=== PATIENT | male | born 1950 | race Caucasian/White ===

== ENCOUNTER 2017-06-22 14:31 | Observation (INO) ==
--- NOTE | 2017-06-22 16:52 | Emergency Department Note ---
Disposition Clinical Impression: Chest pain of unknown etiology, Blurry vision, bilateral Disposition: Admitted As Inpatient Condition: Good Time of Disposition: 22:35 Chest Pain HPI - General Chief Complaint: ED General Medical Stated Complaint: "im vibrating" Time Seen by Provider: 06/22/17 16:21 Source: patient Limitations: no limitations Vital Signs Reviewed: Yes Nursing Notes Reviewed: Yes - History of Present Illness HPI Narrative: 67-year-old male complains of sensation of vibration in his left lower extremity that radiates. Down from his hip. Patient has a history of prostate issues currently under evaluation. Patient's received a bone scan and CT abdomen and pelvis times one week ago. Patient states his been having no pain with the vibrating sensation. Sensation has been constant since 1 night ago. Patient states he has an intermittent chest tightness last pressure that lasts a few seconds whenever the vibration sensation starts up. Patient currently has no pain. Severity scale (1-10): 0 - Related Data Home Medications Medication Instructions Recorded Confirmed Fexofenadine HCl 180 mg PO QAM 03/26/16 06/22/17 Fluticasone Propionate Nasal 50 mcg NS DAILY PRN 06/22/17 06/22/17 [Flonase] Oxybutynin Chloride [Ditropan Xl] 10 mg PO HS 06/22/17 06/22/17 Allergies Allergy/AdvReac Type Severity Reaction Status Date / Time Sulfa (Sulfonamide Allergy See Verified 03/26/16 11:22 Antibiotics) Comments All systems ED: reviewed and negative except as stated. Review of Systems: As Per HPI Constitutional: Denies: fever, chills, weakness Eyes: Denies: vision change ENT ED: Denies: congestion Cardiovascular: Denies: chest pain, palpitations Respiratory: Denies: cough, dyspnea Gastrointestinal: Denies: abdominal pain, nausea, vomiting, diarrhea Genitourinary: Reports: dysuria. Denies: urgency Chest Pain PMH - Past Medical History Medical history: Reports: arthritis, cancer, COPD, other Surgical history: Reports: appendectomy, cholecystectomy Psychiatric history: Reports: no psych history - Social History Smoking Status: Current every day smoker Alcohol use: Reports: none Drug use: Reports: none Physical Exam Vital Signs Temperature 97.7 F 06/22/17 14:33 Pulse Rate 94 06/22/17 14:33 Respiratory Rate 14 01/03/18 14:33 Blood Pressure 189/102 01/03/18 14:33 O2 Sat by Pulse Oximetry 98 06/22/17 14:33 Temperature 97.7 F 06/22/17 14:33 Pulse Rate 92 06/22/17 16:34 Respiratory Rate 16 06/22/17 16:34 Blood Pressure 164/109 06/22/17 16:34 O2 Sat by Pulse Oximetry 98 06/22/17 16:34 Oxygen Delivery Oxygen Delivery Room Air 67-year-old male who is alert and oriented 3 and in no acute distress. GCS of 15 Patient is afebrile with normal vital signs with exception of his blood pressure which is 189/102. Re-check of blood pressure shows 164/109. Patient is nontoxic appearing. - General Limitations: no limitations General appearance: alert - Head Head exam: atraumatic, normocephalic, normal inspection - Eye Eye exam: Present: normal appearance, PERRL, EOMI - ENT ENT exam: normal exam, normal oropharynx, mucous membranes moist - Neck Neck exam: Present: normal inspection - Chest Chest inspection: Present: normal inspection, symmetric chest wall rise - Respiratory Respiratory exam: Present: normal lung sounds bilaterally - Cardiovascular Cardiovascular exam: Present: regular rate, normal rhythm, normal heart sounds - Abdominal Exam Abdominal exam: Present: soft, Non-Tender. Absent: tenderness, distention, guarding, rebound, rigidity Course Vital Signs Temperature 97.7 F 06/22/17 14:33 Pulse Rate 94 06/22/17 14:33 Respiratory Rate 14 06/22/17 14:33 Blood Pressure 189/102 06/22/17 14:33 O2 Sat by Pulse Oximetry 98 06/22/17 14:33 Temperature 97.7 F 06/22/17 14:33 Pulse Rate 89 06/22/17 21:17 Respiratory Rate 18 06/22/17 21:17 Blood Pressure 146/86 06/22/17 21:17 O2 Sat by Pulse Oximetry 95 06/22/17 21:17 Oxygen Delivery Oxygen Delivery Room Air Chest Pain - MDM Narrative Medical decision making narrative: This documentation is done with the assistance of Dragon dictation. Despite efforts to ensure accuracy, there may be inaccuracies in mammalogist or spelling and typographical errors. I examined this patient and my medical decision-making was reviewed with the Resident Physician. I agree with the documented findings, disposition and treatment plan as described except to the extent set forth below. Patient was seen and evaluated by Dr. Rangel and myself, I agree with his evaluation and management plan, I supervised the care of the patient's stay. Patient's having a vibratory sense going down his left leg. Denies sciatica, no change in bowel or bladder habits. He does have good pulses in lower extremities. Pulses complaining of some intermittent chest pressure with marrow last couple days. Very vague in his history. Denies any back pain shortness of breath or arm pain. Going to give him an aspirin, check labs and reassess. He is in agreement with this plan. He states his chest pressures been going on for more than 24 hours. Chest X-Ray 06/22/17 16:48 IMPRESSION: No evidence for acute cardiopulmonary process. COPD. D/ / 06/22/2017 17:07:56 Eddie London MD / [email or web address] Interpreting Provider: Eddie London MD 1750 hrs.: His labs are back and look good. Troponins negative. I am uncertain what could be causing this vibratory sense that he feels. As this is nothing that we can feel. He has good pulses. Nonsurgical abdomen. No chest pain at this time. We talked about admission to rule out ACS since he had the chest pressure or home and follow up with primary care and determining which he would like to do. Patient has elected for admission for evaluation of his chest pain. He also states she has been having periods of blurry vision. CT scan of his head was taken and results shown below: Chest X-Ray 06/22/17 16:48 IMPRESSION: No evidence for acute cardiopulmonary process. COPD. D/ / 06/22/2017 17:07:56 Eddie London MD / [email or web address] Interpreting Provider: Eddie London MD Head CT 06/22/17 17:58 IMPRESSION: No acute intracranial abnormality. 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 Minimal chronic microvascular disease. Minimal left mastoid effusion. D/ / Sascha Sun MD / Sascha Sun MD Interpreting Provider: Sascha Sun MD Patient's lab workup is unremarkable. He has a negative troponin. Current plan is for admission and Pt has excepted the decision for admission Dr. Shoemaker the hospitalist has accepted patient for admission - Lab Data Lab results reviewed: Yes I reviewed the patient's lab results. Result diagrams: 06/22/17 17:12 06/22/17 17:12 Lab Results 06/22/17 06/22/17 06/22/17 Range/Units 17:12 17:12 17:12 WBC 8.0 (4.3-11.1) K/mcL RBC 5.32 (4.19-5.50) M/mcL Hgb 16.4 (12.9-16.9) g/dL Hct 49.3 (37.5-50.1) % MCV 92.7 (83.0-100.0) fL MCH 30.8 (28.0-33.3) pg MCHC 33.3 (31.6-35.5) g/dL RDW 13.4 (11.5-14.5) % Plt Count 227 (140-400) K/mcL MPV 9.6 (9.4-12.4) fL Immature Gran % 0.1 (0-4) % Seg Neutrophils % 56.1 % Lymphocytes % 33.0 % Monocytes % 7.9 % Eosinophils % 2.4 % Basophils % 0.5 % Neutrophils # 4.5 (1.6-8.9) K/mcL Lymphocytes # 2.6 (0.6-4.6) K/mcL Monocytes # 0.6 (0.0-1.3) K/mcL Eosinophils # 0.2 (0.0-0.6) K/mcL Basophils # 0.0 (0.0-0.2) K/mcL Sodium 138 (136-145) mEq/L Potassium 4.4 (3.5-5.1) mEq/L Chloride 107 (98-107) mEq/L Carbon Dioxide 27 (23-29) mEq/L BUN 26 H (8-23) mg/dL Creatinine 1.13 (0.70-1.30) mg/dL Est GFR ( Amer) > 60 (> 60) Est GFR (Non-Af Amer) > 60 (> 60) BUN/Creatinine Ratio 23 (6-26) Glucose 97 (70-105) mg/dL Calculated Osmolality 291 (280-300) Calcium 9.8 (8.6-10.3) mg/dL Troponin I < 0.03 (< 0.04) ng/mL Urine Color (Yellow) Urine Clarity (Clear) Urine pH (5.0-8.0) pH Units Ur Specific [place] (1.010-1.025) Urine Protein (Neg-Trace) mg/dL Urine Glucose (UA) (Normal) mg/dL Urine Ketones (Negative) mg/dL Urine Blood (Negative) Urine Nitrite (Negative) Urine Bilirubin (Negative) Urine Urobilinogen (Normal) mg/dL Ur Leukocyte Esterase (Negative) Ur Culture Indicated? (NO) 06/22/17 06/22/17 Range/Units 17:15 20:58 WBC (4.3-11.1) K/mcL RBC (4.19-5.50) M/mcL Hgb (12.9-16.9) g/dL Hct (37.5-50.1) % MCV (83.0-100.0) fL MCH (28.0-33.3) pg MCHC (31.6-35.5) g/dL RDW (11.5-14.5) % Plt Count (140-400) K/mcL MPV (9.4-12.4) fL Immature Gran % (0-4) % Seg Neutrophils % % Lymphocytes % % Monocytes % % Eosinophils % % Basophils % % Neutrophils # (1.6-8.9) K/mcL Lymphocytes # (0.6-4.6) K/mcL Monocytes # (0.0-1.3) K/mcL Eosinophils # (0.0-0.6) K/mcL Basophils # (0.0-0.2) K/mcL Sodium (136-145) mEq/L Potassium (3.5-5.1) mEq/L Chloride (98-107) mEq/L Carbon Dioxide (23-29) mEq/L BUN (8-23) mg/dL Creatinine (0.70-1.30) mg/dL Est GFR ( Amer) (> 60) Est GFR (Non-Af Amer) (> 60) BUN/Creatinine Ratio (6-26) Glucose (70-105) mg/dL Calculated Osmolality (280-300) Calcium (8.6-10.3) mg/dL Troponin I < 0.03 (< 0.04) ng/mL Urine Color Yellow (Yellow) Urine Clarity Clear (Clear) Urine pH 6.0 (5.0-8.0) pH Units Ur Specific [place] 1.024 (1.010-1.025) Urine Protein Negative (Neg-Trace) mg/dL Urine Glucose (UA) Normal (Normal) mg/dL Urine Ketones Negative (Negative) mg/dL Urine Blood Negative (Negative) Urine Nitrite Negative (Negative) Urine Bilirubin Negative (Negative) Urine Urobilinogen Normal (Normal) mg/dL Ur Leukocyte Esterase Negative (Negative) Ur Culture Indicated? NO (NO) - Radiology Data Radiology results reviewed: Yes I reviewed the patient's radiology results. Chest X-Ray 06/22/17 16:48 IMPRESSION: No evidence for acute cardiopulmonary process. COPD. D/ / 06/22/2017 17:07:56 Eddie London MD / earnold Interpreting Provider: Eddie London MD Head CT 06/22/17 17:58 IMPRESSION: No acute intracranial abnormality. 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 Minimal chronic microvascular disease. Minimal left mastoid effusion. D/ / Sascha Sun MD / Sascha uSn MD Interpreting Provider: Sascha Sun MD - EKG Data EKG attestation: Yes I reviewed and interpreted this EKG. EKG results narrative: EKG taken 06/22/2017 at 1442 hrs. shows sinus rhythm at a rate of 98 beats minute with no acute ST elevations or depressions in any leads. EKG reads incomcomplete right bundle-branch block. Previous EKG for comparison taken November 2014 shows right bundle. Previous EKGs looks worse than today's EKG Heart Score - Score History: Moderately Suspicious EKG: Non Specific repolarisation Disturbance Age: Greater than 65 Risk Factors: 1-2 risk factors Troponin: Less than normal limit HEART Score Total: 5
[2017-06-22] MEDS ORDERED: Aspirin 81 MG TAB.CHEW PO STA (17:17)
[2017-06-22 17:19] LABS: Basophils % 0.5 %; Eosinophils # 0.2 K/mcL (0.0-0.6); Eosinophils % 2.4 %; Hematocrit 49.3 % (37.5-50.1); Hemoglobin 16.4 g/dL (12.9-16.9); Immature Granulocytes % 0.1 % (0-4); Lymphocytes # 2.6 K/mcL (0.6-4.6); Mean Corpuscular HGB Conc 33.3 g/dL (31.6-35.5); Mean Corpuscular Hemoglobin 30.8 pg (28.0-33.3); Mean Corpuscular Volume 92.7 fL (83.0-100.0); Mean Platelet Volume 9.6 fL (9.4-12.4); Monocytes # 0.6 K/mcL (0.0-1.3); Monocytes % 7.9 %; Neutrophils # 4.5 K/mcL (1.6-8.9); Platelet Count 227 K/mcL (140-400); Red Blood Count 5.32 M/mcL (4.19-5.50); Red Cell Distribution Width 13.4 % (11.5-14.5); Segmented Neutrophils % 56.1 %
[2017-06-22 17:26] LABS: Bilirubin,Urine Negative (Negative); Blood,Urine Negative (Negative); Clarity,Urine Clear (Clear); Color,Urine Yellow (Yellow); Glucose,Urine (UA) Normal (Normal); Ketones,Urine Negative (Negative); Leukocyte Esterase,Urine Negative (Negative); Nitrite,Urine Negative (Negative); Protein,Urine Negative (Neg-Trace); Specific Gravity,Urine 1.024 (1.010-1.025); Urobilinogen,Urine Normal (Normal)
[2017-06-22 17:35] LABS: BUN/Creatinine Ratio 23 (6-26); Blood Urea Nitrogen 26 mg/dL (8-23); Calcium 9.8 mg/dL (8.6-10.3); Carbon Dioxide 27 mEq/L (23-29); Chloride 107 mEq/L (98-107); Glucose 97 mg/dL (70-105); Osmolality,Calculated 291 (280-300); Potassium 4.4 mEq/L (3.5-5.1); Sodium 138 mEq/L (136-145); eGFR For African Americans > 60 (> 60); eGFR For Non-African Americans > 60 (> 60)
[2017-06-22] MEDS ORDERED: 0.9 % Sodium Chloride 1,000 ML IVC ONE (17:58)
--- NOTE | 2017-06-22 20:28 | Internal Med History&Physical ---
<Deloris Patton - Last Filed: 06/22/17 21:00> Date of Encounter: 06/22/17 Time of Encounter: 20:18 Assessment and Plan (1) Chest pain of unknown etiology Current visit: Yes Status: Acute Patient is comfortable in and no acute distress. Patient is not having any chest pain at this time. EKGs showed no acute ischemic changes and no STEMI. It showed right bundle branch block that was also present on his previous EKG. CXR showed no acute processes. Troponins are negative. Head CT showed no acute intracranial abnormalities but it showed an old infarct in the left cerebellar hemisphere that is stable. Labs are unremarkable. Will admit patient to rule out ACS. Will trend series of troponins. (2) COPD (chronic obstructive pulmonary disease) Current visit: Yes Status: Acute Stable. Will monitor the patient. Qualifiers: Qualified Code(s): J44.9 - Chronic obstructive pulmonary disease, unspecified (3) Blurry vision, bilateral Current visit: Yes Status: Acute Head CT showed no acute intracranial abnormalities but it showed an old infarct in the left cerebellar hemisphere that is stable. Will continue to monitor the patient closely. Admit to rule out ACS. (4) Prostate cancer Current visit: Yes Status: Acute Will have patient follow up with PCP. Patient is complaining of "vibrating sensation" in left hip and radiate down left leg to left foot. Will order Left hip xray to further evaluate. Internal Medicine - H&P: HPI Chief complaint: Chest pain, blurry vision and vibrating sensation in left leg Admitted From: Emergency Dept History of present illness: Mr. Friedman is a 67 year old male with a past medical history of COPD and prostate cancer who presents to the ED today with multiple complaints. He is complaining of a "vibrating sensation down his left leg", chest pain, and bilateral blurry vision that started yesterday in the afternoon. The patient describes the chest pain as intermittent and "squeezing" with no radiation. He states that it comes on while at rest and lasts for 2-3 seconds and then goes away on its own. He does not notice anything that makes the chest pain comes on or goes away. He denies any SOB, diaphoresis, numbness or tingling, nausea and vomiting or any weaknesses associated with the chest pain. He denies any history of TN or CVA or HTN. He describes the blurry vision as intermittent and in both eyes. He does not notice anything that causes the blurry vision and what makes it better. He states that it comes and goes and lasts for less than a minute. He denies any history of vision changes and denies any history of diabetes. He describes the "vibrating sensation" in his left leg as constant and uncomfortable. He stated that it started yesterday around noon while he was sitting in his recliner watching television. It started in the side of his left his and radiates down his left buttock, behind his left leg, and down into his feet. He denies any numbness with this and denies any history of sciatica. He stated that he noticed that the "vibrating sensation" was worse when he was receiving IV fluids, but nothing makes it better. He currently has no chest pain and only complains of the sensation in his left lower extremity. He denies any headaches, abdominal pain, nausea and vomiting, blood in his stool, dysuria, hematuria, and any seizures. Past Med Surg Social Fam HX - Past Medical History Medical history: arthritis, cancer, COPD, other Psychiatric history: no psych history - Past Surgical History Surgical History: appendectomy, cholecystectomy - Social History Smoking Status: Current every day smoker Smokeless Tobacco Status: No Alcohol use: none Drug use: none Internal Medicine - H&P: Meds Fexofenadine HCl 180 mg PO QAM 03/26/16 [History] Fluticasone Propionate Nasal [Flonase] 50 mcg NS DAILY PRN 06/22/17 [History] Oxybutynin Chloride [Ditropan Xl] 10 mg PO HS 06/22/17 [History] 3 Allergy/AdvReac Type Severity Reaction Status Date / Time Sulfa (Sulfonamide Allergy See Verified 03/26/16 11:22 Antibiotics) Comments All Systems PM: A 10-system review of systems was performed and is negative for pertinent findings except as documented above in the HPI. - Constitutional Vitals: Temp Pulse Resp BP Pulse Ox 97.7 F 86 18 135/77 94 06/22/17 14:33 06/22/17 20:05 06/22/17 20:05 06/22/17 20:05 06/22/17 20:05 General appearance: Present: cooperative, A&O X 3, pleasant. Absent: no acute distress - Head Head exam: Present: atraumatic, normocephalic - Eye Eye exam: Present: PERRL, conjuntiva pink, sclera anicteric Pupils: Present: PERRL - Neck Neck exam general surgery: Present: supple, trachea midline. Absent: lymphadenopathy - Respiratory Respiratory exam: Present: CTAB. Absent: accessory muscle use, rales, rhonchi, wheezes - Cardiovascular Cardiovascular exam: Present: RRR, +S1, +S2. Absent: diastolic murmur, gallop, rubs, systolic murmur - GI/Abdominal GI/Abdominal exam: Present: normal bowel sounds, soft, no peritoneal signs. Absent: distended, tenderness - Extremities Exam Extremities exam: Present: warm, radial pulses palpable and symmetrical. Absent : calf tenderness, cyanotic, pedal edema - Neurological Exam Neurological exam: Present: alert, CN II-XII intact, oriented X3, no focal deficits, strengths equal and symetr throughout. Absent: motor sensory deficit , pronater drift, facial droop, speech deficit - Expanded Neurological Exam Neurological exam expanded: Absent: ataxia, tremor Patient oriented to: Present: person, place, time Neuro motor strength exam: LUE: 5, RUE: 5, LLE: 5, RLE: 5 - Skin Skin exam: Present: dry, intact Internal Med - H&P Results - Labs CBC & Chem 7: 06/22/17 17:12 06/22/17 17:12 Labs: Short CBC 06/22/17 Range/Units 17:12 WBC 8.0 (4.3-11.1) K/mcL Hgb 16.4 (12.9-16.9) g/dL Hct 49.3 (37.5-50.1) % Plt Count 227 (140-400) K/mcL Neutrophils # 4.5 (1.6-8.9) K/mcL BMP 06/22/17 17:12 Sodium 138 Potassium 4.4 Chloride 107 Carbon Dioxide 27 BUN 26 H Creatinine 1.13 Glucose 97 Calcium 9.8 Cardiac Enzymes 06/22/17 Range/Units 17:12 Troponin I < 0.03 (< 0.04) ng/mL Urine 06/22/17 Range/Units 17:15 Urine Color Yellow (Yellow) Urine Clarity Clear (Clear) Urine pH 6.0 (5.0-8.0) pH Units Ur Specific [place] 1.024 (1.010-1.025) Urine Protein Negative (Neg-Trace) mg/dL Urine Glucose (UA) Normal (Normal) mg/dL - Impressions ITS Impressions Chest X-Ray 06/22/17 16:48 IMPRESSION: No evidence for acute cardiopulmonary process. COPD. D/ / 06/22/2017 17:07:56 Eddie London MD / earnold Interpreting Provider: Eddie London MD Head CT 06/22/17 17:58 IMPRESSION: No acute intracranial abnormality. 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 Minimal chronic microvascular disease. Minimal left mastoid effusion. D/ / Sascha Sun MD / Sascha Sun MD Interpreting Provider: Sascha Sun MD <Nam Hinojosa - Last Filed: 06/23/17 07:05> Date of Encounter: 06/23/17 Internal Medicine - H&P: HPI History of present illness: Mr. Friedman is a 67 year old male All Systems PM: A 10-system review of systems was performed and is negative for pertinent findings except as documented above in the HPI. - Constitutional Vitals: Temp Pulse Resp BP Pulse Ox 97.6 F 85 18 149/75 96 06/23/17 06:56 06/23/17 06:56 06/23/17 06:56 06/23/17 06:56 06/23/17 06:56 Internal Med - H&P Results - Labs CBC & Chem 7: 06/23/17 03:20 06/23/17 03:20 Labs: Short CBC 06/23/17 Range/Units 03:20 WBC 6.4 (4.3-11.1) K/mcL Hgb 14.0 D (12.9-16.9) g/dL Hct 41.1 (37.5-50.1) % Plt Count 189 (140-400) K/mcL Neutrophils # 2.8 (1.6-8.9) K/mcL BMP 06/23/17 03:20 Sodium 140 Potassium 4.2 Chloride 113 H Carbon Dioxide 25 BUN 26 H Creatinine 1.05 Glucose 111 H Calcium 8.7 Cardiac Enzymes 06/23/17 Range/Units 03:20 Troponin I < 0.03 (< 0.04) ng/mL - Attending Attestation I have seen and examined patient independently. I have discussed with resident physician Dr Patton regarding the management plan. Agree with the documentation.
[2017-06-22] MEDS ORDERED: Naloxone 0.4 MG/ML INJ IVP PRN (20:36)
[2017-06-22] MEDS ORDERED: Acetaminophen 325 MG TABLET PO PRN (20:36)
[2017-06-22] MEDS ORDERED: Nitroglycerin 0.4 MG TAB.SUBL SL PRN (20:41)
[2017-06-22] MEDS ORDERED: 0.9 % Sodium Chloride 1,000 ML IVC SCH (20:45)
[2017-06-22] MEDS ORDERED: Fluticasone Propionate Nasal 50 MCG/SPRAY BOTTLE NS PRN (21:09)
[2017-06-23 04:50] LABS: Basophils % 0.6 %; Eosinophils # 0.3 K/mcL (0.0-0.6); Eosinophils % 3.9 %; Hematocrit 41.1 % (37.5-50.1); Immature Granulocytes % 0.3 % (0-4); Lymphocytes # 2.6 K/mcL (0.6-4.6); Lymphocytes % 40.8 %; Mean Corpuscular HGB Conc 34.1 g/dL (31.6-35.5); Mean Corpuscular Hemoglobin 31.2 pg (28.0-33.3); Mean Corpuscular Volume 91.5 fL (83.0-100.0); Mean Platelet Volume 10.4 fL (9.4-12.4); Monocytes # 0.7 K/mcL (0.0-1.3); Monocytes % 10.8 %; Neutrophils # 2.8 K/mcL (1.6-8.9); Platelet Count 189 K/mcL (140-400); Red Blood Count 4.49 M/mcL (4.19-5.50); Red Cell Distribution Width 13.3 % (11.5-14.5); Segmented Neutrophils % 43.6 %
[2017-06-23 05:15] LABS: BUN/Creatinine Ratio 25 (6-26); Blood Urea Nitrogen 26 mg/dL (8-23); Calcium 8.7 mg/dL (8.6-10.3); Carbon Dioxide 25 mEq/L (23-29); Chloride 113 mEq/L (98-107); Chol/HDL Ratio 3.4 (0-4.9); Cholesterol 132 mg/dL (< 200); Glucose 111 mg/dL (70-105); HDL Cholesterol 39 mg/dL (40-59); LDL Cholesterol,Calculated 74 mg/dL (0-99); Magnesium 1.8 mg/dL (1.6-2.6); Osmolality,Calculated 295 (280-300); Phosphorous 3.1 mg/dL (2.7-4.5); Potassium 4.2 mEq/L (3.5-5.1); Sodium 140 mEq/L (136-145); Triglycerides 93 mg/dL (< 150); eGFR For African Americans > 60 (> 60); eGFR For Non-African Americans > 60 (> 60)
[2017-06-23] MEDS ORDERED: Regadenoson 0.4 MG/5 ML SYRINGE IVP ONE (06:16)
[2017-06-23] MEDS ORDERED: Aspirin Enteric Coated 81 MG Tablet PO SCH (09:00)
[2017-06-23] MEDS ORDERED: Loratadine 10 MG TABLET PO SCH (09:00)
[2017-06-23 11:08] VITALS: BP 142/90
--- NOTE | 2017-06-23 13:31 | Discharge Summary ---
<Ranjeet Olivo - Last Filed: 06/23/17 13:25> Date of Encounter: 06/23/17 Time of Encounter: 09:35 - Discharge Diagnosis (1) Blurry vision, bilateral Priority: Secondary Status: Acute (2) COPD (chronic obstructive pulmonary disease) Priority: Secondary Status: Acute Qualifiers: Qualified Code(s): J44.9 - Chronic obstructive pulmonary disease, unspecified (3) Chest pain of unknown etiology Priority: Primary Status: Acute (4) Prostate cancer Priority: Secondary Status: Acute (5) Tingling sensation Priority: Secondary Status: Acute - Discharge Medications Prescriptions: Aspirin Enteric Coated [Aspirin EC] 81 mg PO DAILY #30 tablet. Atorvastatin [Lipitor] 40 mg PO HS #30 tablet Home Medications: Fexofenadine HCl 180 mg PO QAM 03/26/16 [History] Fluticasone Propionate Nasal [Flonase] 50 mcg NS DAILY PRN 06/22/17 [History] Oxybutynin Chloride [Ditropan Xl] 10 mg PO HS 06/22/17 [History] Aspirin Enteric Coated [Aspirin EC] 81 mg PO DAILY #30 tablet. 06/23/17 [Rx] Atorvastatin [Lipitor] 40 mg PO HS #30 tablet 06/23/17 [Rx] Allergies/Adverse Reactions: 3 Allergy/AdvReac Type Severity Reaction Status Date / Time Sulfa (Sulfonamide Allergy See Verified 03/26/16 11:22 Antibiotics) Comments Date of admission: 06/22/17 22:33 Primary care physician: Reshma Monahan Discharging clinician: Ranjeet Olivo Anticipated date of discharge: 06/23/17 - Patient Status Disposition: Home, Self-Care Condition: Good Functional capacity at discharge: independent ambulation Overall status at discharge: patient is back to baseline - Discharge Instructions Instructions: Chest Pain (DC) Follow Up With: Reshma Mcclelland MD [Primary Care Provider] - - Diet and Activity Activity: increase activity as tolerated Diet: advance to your usual diet Interval History: Patient evaluate his ASIS is chest pain is nearly gone he is not currently having is lying in bed. He says the tingling/hurting in his left leg is still there but has been unchanged and nothing new was happening with it. He says his blurry vision is having is completely gone he now has normal vision. Patient otherwise not complaining of shortness of breath, abdominal pain, nausea , vomiting, fever, chills, urinary complaints, change in bowel movements. Patient otherwise has no complains. There were no overnight events. Hospital course: Mr. Friedman is a 67 year old male with history of COPD and prostate cancer presented to the emergency department complaining of a vibrating sensation going down his left leg pain constant for 1 night prior to him coming to the emergency department. He also had intermittent chest chest tightness and pressure the last a few seconds and the vibration sensation starts. He currently was on numerous term and did not have any pain. He also noted that he had one episode of bilateral blurry vision and only lasted a few seconds and went away and this time he is watching TV. In the emergency department he was given aspirin and had an EKG done which showed a right bundle branch block which is old for him where he said he had an ablation done approximately 3-5 years ago as had no problems since then. She did have troponins which are normal other labs were normal as well. They did chest x-ray showed COPD. 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 He is admitted to the hospitalist service had 3 negative troponins. Due to him not having a cardiac history never undergone a stress test he did have a nuclear stress test done here which was shown to be normal with a 75% EF and no acute findings. He also had echo which also had no acute findings and normal EF. Due to this this is probably stable angina and he be followed outpatient. Because of this being a possible stroke and stroke history we will start him on a daily aspirin, 81 mg, as well as a statin, atorvastatin 40 mg daily. For his leg vibration I told him this could be a neurological/nerve problem and this can be followed in the outpatient setting most likely with physical therapy or possible future MRI. Patient says that he is fine with as is not currently having pain or change in his daily activities. The blurry vision and has not reoccurred since then this could be due to his stroke that is old. We did recommend him to keep following it and to follow-up with his primary care physician about possibly and an outpatient MRI. Patient understands this. Patient is discharged home on atorvastatin and aspirin and to continue his normal medications. Patient is stable at this time. N will follow up with primary care. Chest X-Ray 06/22/17 16:48 IMPRESSION: No evidence for acute cardiopulmonary process. COPD. D/ / 06/22/2017 17:07:56 Eddie London MD / earnold Interpreting Provider: Eddie London MD Head CT 06/22/17 17:58 IMPRESSION: No acute intracranial abnormality. 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 Minimal chronic microvascular disease. Minimal left mastoid effusion. D/ / Sascha Sun MD / Sascha Sun MD Interpreting Provider: Ssacha Sun MD Hip X-Ray 06/22/17 20:57 IMPRESSION: No acute abnormality detected. D/ / Armond Knapp MD / Armond Knapp MD Interpreting Provider: Armond Knapp MD - Time Spent with Patient Total time spent providing and/or coordinating discharge services: Greater than 30 minutes - Constitutional Vitals: Temp Pulse Resp BP Pulse Ox 97.8 F 90 18 142/90 97 06/23/17 11:05 06/23/17 11:05 06/23/17 11:05 06/23/17 11:05 06/23/17 11:05 General appearance: Present: cooperative, A&O X 3, pleasant. Absent: no acute distress - Head Head exam: Present: atraumatic, normocephalic - Eye Eye exam: Present: PERRL, conjuntiva pink, sclera anicteric Pupils: Present: PERRL - Neck Neck exam general surgery: Present: supple, trachea midline. Absent: lymphadenopathy - Respiratory Respiratory exam: Present: CTAB. Absent: accessory muscle use, rales, rhonchi, wheezes - Cardiovascular Cardiovascular exam: Present: RRR, +S1, +S2. Absent: diastolic murmur, gallop, rubs, systolic murmur - GI/Abdominal GI/Abdominal exam: Present: normal bowel sounds, soft, no peritoneal signs. Absent: distended, tenderness - Extremities Exam Extremities exam: Present: warm, radial pulses palpable and symmetrical. Absent : calf tenderness, cyanotic, pedal edema - Neurological Exam Neurological exam: Present: CN II-XII intact, oriented X3, no focal deficits. Absent: pronater drift, facial droop, speech deficit - Skin Skin exam: Present: dry, intact <Mikel Griggs G - Last Filed: 06/23/17 15:09> Date of Encounter: 06/23/17 Date of admission: 06/22/17 22:33 Primary care physician: Reshma [facility]erg[facility] course: Mr. Friedman is a 67 year old male - Time Spent with Patient Total time spent providing and/or coordinating discharge services: - Constitutional Vitals: Temp Pulse Resp BP Pulse Ox 97.8 F 90 18 142/90 97 06/23/17 11:05 06/23/17 11:05 06/23/17 11:05 06/23/17 11:05 06/23/17 11:05 - Attending Attestation I saw and evaluated the patient at bedside. I have reviewed the DC note obtained and documented by the resident and personally participated in the martinez components. I have discussed the case and management of the patient's care. I agree with the findings and plan of care.
--- NOTE | 2017-06-23 19:17 | Electrocardiograph Report ---
[address] [address] Test Date: 2017-06-22 Pat Name: Raymundo Friedman Department: 104 Room: [facility] Gender: M Hall Cleaner: : 1950 Requested By: Flash Rangel Order Number: [id number] Reading MD: Miguel Wilson MD Measurements Intervals [place] Rate: 98 P: 72 [place]: 135 QRS: 65 QRSD: 101 T: 73 QT: 350 QTc: 406 Interpretive Statements SINUS RHYTHM INCOMPLETE RIGHT BUNDLE BRANCH BLOCK Electronically Signed On 06-23-2017 19:16:00 EST by Miguel Wilson MD
== END 2017-06-23 14:43 | disposition home or self-care (01) ==
LOC: EMEROO 14:31 → 3NENU 14:31 → SUATTDRO 22:33 → 3NENU 22:46
PROVIDERS: ADMIT Family Medicine; ATTEND Internal Medicine

== ENCOUNTER 2017-08-22 06:08 | Observation (INO) ==
[2017-08-22] MEDS ORDERED: CeFAZolin Syr 2,000MG/20 ML 2,000 MG/20 ML SYRINGE IVPB ONE (06:28)
[2017-08-22] MEDS ORDERED: Albuterol 2.5 MG/3 ML NEBULIZER IH ONE (06:28)
[2017-08-22] MEDS ORDERED: Plasma-Lyte A (PH 7.4) 1,000 ML IVC SCH (06:30)
--- NOTE | 2017-08-22 06:49 | Anesthesia Evaluation PreOp ---
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 06/23/17 [Rx] Atorvastatin [Lipitor] 40 mg PO HS #30 tablet 06/23/17 [Rx] HYDROcodone/Acet 5/325 mg [Olema 5-325 mg] 1 tab PO Q4H PRN #10 tab 07/12/17 [Rx ] Phenazopyridine HCl [Pyridium] 200 mg PO TIDAC PRN #10 tab 07/12/17 [Rx] 3 Allergy/AdvReac Type Severity Reaction Status Date / Time Sulfa (Sulfonamide Allergy See Verified 08/08/17 08:34 Antibiotics) Comments Anesthesia Results - Labs Laboratory Tests 06/23/17 08/08/17 08/08/17 03:20 09:15 09:15 Hgb 16.1 Hct 49.0 Plt Count 234 Sodium 140 Potassium 4.2 BUN 26 H Creatinine 1.20 - Imaging Additional studies: echo: Impressions: LVEF 60-65%. Normal LV chamber size, wall thickness and function. Mild left ventricular diastolic dysfunction. Normal right ventricular structure and function. No evidence of pulmonary hypertension. No significant valvular dysfunction. stress test: Findings: Stress Note * Resting ECG demonstrated normal sinus rhythm, incomplete RBBB. * No baseline arrhythmias were noted. * Pharmacologic stress ECG is negative for ischemia at level of heart rate achieved. * No arrhythmias were noted during stress. * Patient had no chest pain during stress. * Normal hemodynamic responses to pharmacologic stress. Study Quality * Study quality is average. Gated EF % * Gated EF = 70%. Left Ventricle * The left ventricle is not dilated. LVEDV = 86 mL. NORMALS * Normal wall motion. * Normal segmental perfusion in rest. * Normal segmental perfusion in stress. Anesthesia Exam Selected Entries 08/22/17 06:34 Temperature 98.1 F Pulse Rate 100 Respiratory Rate 18 Blood Pressure 149/97 O2 Sat by Pulse Oximetry 98 Weight: 66kg NPO (# of Hours): 8 - HEENT Pupil (Motor): EOMI Mallampati: II Teeth: Edentulous Oral Opening: Greater than 3 - PLANETARIUM TECHNICIAN LOC: Oriented PLANETARIUM TECHNICIAN Motor: Normal RUE, Normal LUE, Normal RLE, Normal LLE, Normal Face PLANETARIUM TECHNICIAN Sensory: Normal: RUE, LUE, RLE, LLE, Face - Cardiac Rhythm: Regular Murmur: None - Pulmonary Breath Sounds: bilateral Clear Respiratory Effort: Symmetrical Anesthesia Assess/Plan ASA Score: 3 Modified Radha Scale for Level of Consciousness: Cooperative, oriented, and tranquil Anesthetic Plan: General Monitoring Plan: Standard Monitors, A-Line, CVC (possible) Recovery Plan: PACU (Agrees to GA and lines)
[2017-08-22] MEDS ORDERED: Lidocaine -MPF 4% 5 ML AMPUL ONE (06:58)
[2017-08-22] MEDS ORDERED: Lidocaine -MPF 2% 2 ML VIAL ONE (07:00)
[2017-08-22] MEDS ORDERED: *HR* FentaNYL (PF) 100 MCG/2 ML VIAL ONE ×2 (07:03→11:22)
[2017-08-22] MEDS ORDERED: *HR* Midazolam HCl 2 MG/2 ML VIAL ONE (07:03)
[2017-08-22] MEDS ORDERED: *HR* Propofol 200 MG/20 ML VIAL IVP ONE ×2 (07:04→11:44)
[2017-08-22] MEDS ORDERED: *HR* Rocuronium Bromide 50 MG/5 ML VIAL ONE ×2 (07:06→09:15)
[2017-08-22] MEDS ORDERED: *HR* Succinylcholine 200 MG/10 ML VIAL IVP ONE (07:06)
[2017-08-22] MEDS ORDERED: Heparin 1,000 UNITS/500 mL 500 ML ONE (07:26)
--- NOTE | 2017-08-22 07:31 | History & Physical Report ---
Date of Encounter: 08/22/17 Time of Encounter: 07:31 24 Hour HP Update - Instructions Instructions: If the History and Physical is less than 30 days old and was completed prior to A.M. admission and or procedure and has NOT been updated on calendar day of procedure please complete this update prior to performing procedure. - Update Patient reports changes in Medical Condition: No Changes in examination, assessment, or condition: No Changes in Medication: No Preop tests/diagnostics Reviewed: Yes Surgery Remains Indicated: Yes Consent for Planned Operative Procedure(s) Verified: Yes - Pre-Operative Checklist Preoperative Checklist Indicated: Yes Prophylactic Antibiotic Ordered: Yes Home Medications Include Beta Mouna: No Is VTE Prophylaxis Indicated?: Yes
[2017-08-22] MEDS ORDERED: Esmolol 100 MG/10 ML VIAL IVP ONE (07:55)
[2017-08-22] MEDS ORDERED: *HR* PHENYLEPHRINE 1,000 MCG/10 ML SYRINGE IVP ONE ×2 (08:01→08:33)
[2017-08-22] MEDS ORDERED: Albumin Human 5% 25.0 GM/500 ML VIAL ONE (08:51)
[2017-08-22] MEDS ORDERED: Acetaminophen IV 1,000 MG/100 ML INFUS..BTL ONE (08:58)
[2017-08-22] MEDS ORDERED: Ondansetron 4 MG/2 ML VIAL IVP ONE (09:19)
[2017-08-22] MEDS ORDERED: *HR* OxyCODONE Immed Rel 5 MG TABLET PO PRN (09:19)
--- NOTE | 2017-08-22 12:00 | Operative Note ---
Date of procedure: 08/22/17 Pre-op diagnosis: Prostate cancer Post-op diagnosis: same Procedure: Robotic-assisted radical prostatectomy with bilateral pelvic lymph node dissection Implants: 20-Swiss Garcia catheter. 19-Swiss Emilio drain. Complications: None Anesthesia: MICHAEL Surgeon: Nick Singh Was there an retail event assistant present: Yes Costume Seamstress: Bryce Mars Estimated blood loss (cc): 100 Specimen: Fat over top prostate. Right and left pelvic lymph nodes. Prostate. Condition: stable Disposition: PACU Procedure in Detail: INDICATIONS FOR PROCEDURE: Mr. Friedman is a 67 year-old male with history of elevated PSA. He was found on prostate needle biopsy to have prostate cancer. He is now presenting for robotic assisted prostatectomy with bilateral pelvic lymph node dissection. He was informed of the risks of the procedure including but not limited to bleeding, infection, injury to other structures, need for further procedures, lymphocele, urinary incontinence, urine leak, erectile dysfunction, bladder neck contracture, rectal injury, and the risk of anesthesia. He is willing to proceed. PROCEDURE: After informed consent was obtained, the patient was taken to the operating room, placed supine on the table. He was given IV antibiotics for antibiotic coverage. He had MADONNA's and SCD's placed on the lower extremities for DVT prophylaxis. Induction of general anesthesia was performed. The arms were tucked and he was placed in lithotomy position. He was secured to the OR table with padding. The patient previously had abdominal surgery. The left upper quadrant was void of any previous incisions. Therefore, 5 mm incision was made in the left upper quadrant. The Veress needle was introduced. The water drop test passed. Pneumoperitoneum was initiated with low pressures initially. The abomen was insufflated. I then placed a 5mm laparoscopic port using the camera and visual obturator. Once the trocar was in place, I surveyed the abdomen. There was no evidence of adhesions. I then made a 10 mm infraumbilical incision. The robotic port was placed here. Robotic ports were placed x 2 on the right side. We placed another robotic port to the left of the umbilicus. We also placed a 12mm port in the left lower quadrant. The air seal was initiated. Once all trocars were in place, the robot was docked to the patient and the monopolar scissors were placed on the right robotic arm. The bipolar [place] was in the left robotic arm and the Prograsp in the 4th arm. Within the right inguinal ring there was a mesh plug noted. I was able to carefully dissect this away from the field. We initially retracted the bowel with the 4th arm. The medial umbilical ligaments were cauterized and the bladder was taken down off the anterior abdominal wall using electrocautery. The bladder was dissected down to the endopelvic fascia. Care was taken along the right pelvic side given the previous hernia repair. The bladder was then grasped with a 4th arm and retracted cephalad. We then swept the periprostatic fat off the prostate as well as the pelvic sidewall. This was sent as a specimen. We then incised the endopelvic fascia on both sides and carried the incision up to the prostatic apex, sweeping the levator fibers off of the prostate. The puboprostatic ligaments were carefully incised. We then placed an 0 Vicryl suture through the dorsal venous complex and tied it down with a slip knot. Once the dorsal venous complex was ligated, we then turned our attention to the bladder neck which was incised with the monopolar cautery until the catheter was visualized at the bladder neck. The lateral bladder neck was carefully dissected and a large median lobe was noted. This was retracted into the field. The posterior bladder neck was then opened using the cautery until the space between the prostate and the bladder neck was visualized. Using the fourth arm was able to grasp the median lobe to retract the prostate anteriorly. Eventually, the vas deferens and seminal vesicals were encountered. The vas deferens were cauterized and divided. We pulled the seminal vesicles up into the field to help retract the prostate in cephalad direction. Denonvillier's fascia was dissected off the prostate posteriorly. Given the volume of cancer noted on his biopsy and his elevated PSA, we did not proceed with a nerve sparing approach. The pedicles were then ligated. I carefully divided the pedicles using multiple Hem-o-candice clips to clip the larger prostatic pedicle. Once the pedicles were controlled the remaining tissue was carefully dissected off the posterior aspect of the prostate. Attention was then turned to the right side. The pedicles were controlled using Hem-o-candice clips. T We then used the 4th arm to place the prostate on stretch in cephalad direction. We then transected the dorsal venous complex. The stitch remained in place. Once I got to the urethra this was incised with cold scissors. I cut across the urethra until the catheter was visualized. The catheter was removed and the posterior urethra was transected. The prostate was then freed. Hemostasis was adequate. There was no significant bleeding from the pedicles. Attention was then turned to the left pelvic sidewall. The external iliac vein was identified. Careful dissection then isolated the lymph node packet and the obturator nerve was identified. Weck clips were placed at the superior aspect of the lymph node packet. They were also placed at the inferior aspect of the lymph node packet. An identical approach was performed on the rightt side. The node packets were sent separately. On the right side the previous hernia repair made the dissection somewhat more difficult. The eugenia packet appeared smaller on the right side in order to be safe and not risk injury. The bladder neck was surveyed. It was slightly open. I then closed it laterally at the 3:00 and 9:00 positions with a 3-0 Monocryl in a figure-of- eight fashion. This led the bladder neck to be only slightly larger than the urethra. The urethral vesicle anastomosis was then performed with a 3-0 V-Candice suture in running fashion starting at 6 o'clock position. With two sutures tied together we then ran the right side up about penitentiary. The left side was then run around until the bladder was reanastamosed to the urethra. The final 20 Swiss catheter was placed into the bladder and balloon filled with 15 mL of sterile water. The bladder was irrigated. No leak was identified. A 19 Swiss Emilio drain was placed through the trocar down into the pelvis. The trocar was removed and drain sewn in place with a suture. The robot was then undocked from the patient. Using laparoscopic instruments I then moved the string from the Endo Catch bag over to the umbilical port with the assistance of the 8 mm robotic camera. After extending the incision slightly with the electrocautery the EndoCatch bag was then removed from the camera port. The abdominal fascia was then closed in an interrupted fashion with 0 Vicryl suture. All incisions were instilled with 0.25% Marcaine. The remaining trocars were removed under direct vision and all incisions were then closed with 4-0 Monocryl in subcuticular fashion. The patient was then awakened from general anesthesia and brought to the recovery room in good condition. All sponge, needle, and instrument counts were correct.
[2017-08-22] MEDS: MORPHINE SUL Oral CONC 10 MG/0.5 ML ORAL.SYG SL PRN ×2 (12:59→13:09)
[2017-08-22] MEDS ORDERED: *HR* OxyCODONE Immed Rel 5 MG TABLET PO ONE (13:25)
--- NOTE | 2017-08-22 14:33 | Anesthesia Evaluation Post Op ---
Date of Encounter: 08/22/17 Time of Encounter: 14:32 - Vital Signs Vital Signs: Last Vital Signs Temp 98.8 F 08/22/17 14:01 Pulse 104 08/22/17 14:01 Resp 22 08/22/17 14:01 BP 142/77 08/22/17 14:01 Pulse Ox 98 08/22/17 14:01 - Lungs Lungs: Clear Ascult./Percussion - Airway Airway: Non-obstructed - Cardiovascular Regular Rate - Mental Status Mental Status: Alert & Oriented, Answers Appropriately - Pain Pain Scale: 2 - Nausea Vomiting Nausea Vomiting: Not Present - Hydration Hydration: NPO - Discharge PostOp Status: Transfer Patient to floor
[2017-08-22] MEDS ORDERED: Fluticasone Propionate Nasal 50 MCG/SPRAY BOTTLE NS PRN (14:39)
[2017-08-22] MEDS ORDERED: Acetaminophen 325 MG TABLET PO PRN (14:39)
[2017-08-22] MEDS ORDERED: Naloxone 0.4 MG/ML INJ IVP PRN (14:39)
[2017-08-22] MEDS ORDERED: Ondansetron 4 MG/2 ML VIAL IVP PRN (14:39)
[2017-08-22] MEDS ORDERED: Promethazine 12.5 MG in 0.9 % Sodium Chloride 50 ML IVPB PRN (14:39)
[2017-08-22] MEDS: *HR* OxyCODONE Immed Rel 5 MG TABLET PO PRN (15:11)
[2017-08-22] MEDS ORDERED: CeFAZolin Premix DUPLEX 2,000 MG/50 ML BAG IVPB SCH (16:00)
[2017-08-22] MEDS: 0.9 % Sodium Chloride 1,000 ML IVC SCH (16:13)
[2017-08-22] MEDS: CeFAZolin Premix DUPLEX 2,000 MG/50 ML BAG IVPB SCH (17:14)
[2017-08-22] MEDS: *HR* Heparin 5,000 UNIT/ML VIAL SQ SCH (18:23)
[2017-08-22] MEDS: Ketorolac 15 MG/ML VIAL IVP PRN (18:28)
[2017-08-22] MEDS ORDERED: Famotidine 20 MG TABLET PO PRN (20:32)
[2017-08-23] MEDS ORDERED: CeFAZolin Premix DUPLEX 2,000 MG/50 ML BAG IVPB SCH
[2017-08-23] MEDS: CeFAZolin Premix DUPLEX 2,000 MG/50 ML BAG IVPB SCH ×2 (00:38→09:31)
[2017-08-23] MEDS: 0.9 % Sodium Chloride 1,000 ML IVC SCH ×2 (00:41→09:32)
[2017-08-23] MEDS: *HR* Heparin 5,000 UNIT/ML VIAL SQ SCH (05:09)
[2017-08-23 05:48] LABS: Basophils % 0.3 %; Eosinophils % 0.4 %; Hematocrit 35.5 % (37.5-50.1); Hemoglobin 11.8 g/dL (12.9-16.9); Immature Granulocytes % 0.3 % (0-4); Lymphocytes % 26.9 %; Mean Corpuscular HGB Conc 33.2 g/dL (31.6-35.5); Mean Corpuscular Hemoglobin 31.6 pg (28.0-33.3); Mean Corpuscular Volume 95.2 fL (83.0-100.0); Mean Platelet Volume 9.5 fL (9.4-12.4); Monocytes # 0.7 K/mcL (0.0-1.3); Monocytes % 9.5 %; Neutrophils # 4.5 K/mcL (1.6-8.9); Platelet Count 154 K/mcL (140-400); Red Blood Count 3.73 M/mcL (4.19-5.50); Red Cell Distribution Width 13.6 % (11.5-14.5); Segmented Neutrophils % 62.6 %
[2017-08-23 06:07] LABS: BUN/Creatinine Ratio 21 (6-26); Blood Urea Nitrogen 21 mg/dL (8-23); Calcium 8.6 mg/dL (8.6-10.3); Carbon Dioxide 25 mEq/L (23-29); Chloride 111 mEq/L (98-107); Glucose 105 mg/dL (70-105); Osmolality,Calculated 289 (280-300); Potassium 3.9 mEq/L (3.5-5.1); Sodium 138 mEq/L (136-145); eGFR For African Americans > 60 (> 60); eGFR For Non-African Americans > 60 (> 60)
--- NOTE | 2017-08-23 07:19 | Urology Progress Note ---
Date of Encounter: 08/23/17 Time of Encounter: 07:16 - Assessment and Plan (1) Prostate cancer Current Visit: No Status: Acute Assessment and plan: 67-year-old man status post RARP doing well. Advance diet as tolerated. Continue ambulation We will give small bolus of IV fluid for slightly reduced urine output overnight. If he is tolerating general diet later today, we can anticipate discharge home. Progress Note Narrative: Postop day #1 status post robotic-assisted radical prostatectomy with bilateral pelvic lymph node dissection. His pain is well-controlled. He is tolerating clears. He reports passing gas. He has gotten out of bed. Objective Initial Vital Signs Temp Pulse Resp BP Pulse Ox 98.1 F 100 18 149/97 98 08/22/17 06:25 08/22/17 06:25 08/22/17 06:25 08/22/17 06:25 08/22/17 06:25 - General physical appearance Present: well developed, well nourished, no distress - Respiratory Present: normal respiratory effort - Abdomen Present: soft (Appropriately tender. Incisions are clean, dry, and intact. LEWIS in place with serosanguineous fluid.) - Genitourinary Present: other (Garcia catheter in place with clear urine.) - Labs 08/23/17 05:23 08/23/17 05:23 Diabetes panel 08/23/17 Range/Units 05:23 Sodium 138 (136-145) mEq/L Potassium 3.9 (3.5-5.1) mEq/L Chloride 111 H (98-107) mEq/L Carbon Dioxide 25 (23-29) mEq/L BUN 21 (8-23) mg/dL Creatinine 0.98 (0.70-1.30) mg/dL Glucose 105 (70-105) mg/dL Calcium 8.6 (8.6-10.3) mg/dL Calcium panel 08/23/17 Range/Units 05:23 Calcium 8.6 (8.6-10.3) mg/dL Pituitary panel 08/23/17 Range/Units 05:23 Sodium 138 (136-145) mEq/L Potassium 3.9 (3.5-5.1) mEq/L Chloride 111 H (98-107) mEq/L Carbon Dioxide 25 (23-29) mEq/L BUN 21 (8-23) mg/dL Creatinine 0.98 (0.70-1.30) mg/dL Glucose 105 (70-105) mg/dL Calcium 8.6 (8.6-10.3) mg/dL Adrenal panel 08/23/17 Range/Units 05:23 Sodium 138 (136-145) mEq/L Potassium 3.9 (3.5-5.1) mEq/L Chloride 111 H (98-107) mEq/L Carbon Dioxide 25 (23-29) mEq/L BUN 21 (8-23) mg/dL Creatinine 0.98 (0.70-1.30) mg/dL Glucose 105 (70-105) mg/dL Calcium 8.6 (8.6-10.3) mg/dL - VTE Documentation of Mechanical Device: Intermittent pneumatic compression device Consult Discharge Plan - Plan Referrals: Reshma Mcclelland MD [Primary Care Provider] -
[2017-08-23] MEDS ORDERED: 0.9 % Sodium Chloride 500 ML IVC ONE (07:20)
[2017-08-23] MEDS: *HR* OxyCODONE Immed Rel 5 MG TABLET PO PRN ×2 (09:31→17:02)
[2017-08-23] MEDS: Ketorolac 15 MG/ML VIAL IVP PRN (12:16)
[2017-08-23 15:40] VITALS: BP 156/79
--- NOTE | 2017-08-23 16:00 | Discharge Summary ---
Orders not resulted at time of discharge: Pending orders 08/22/17 10:26 Surgical Pathology [PTH] Routine Date of Encounter: 08/23/17 Time of Encounter: 16:02 - Discharge Diagnosis (1) Prostate cancer Priority: Primary Status: Acute - Hospital Course Hospital course: Mr. Friedman is a 67 year old male who presented on 08/22/2017 with prostate cancer. On that day he underwent a robotic-assisted radical prostatectomy with bilateral pelvic lymph node dissection. He did well after surgery. His diet was slowly advanced after surgery. On postoperative day #1 his drain was removed. He was discharged home later that day. - Time Spent with Patient Total time spent providing and/or coordinating discharge services: Labs on day of discharge: Labs from last 24 hours 08/23/17 08/23/17 05:23 05:23 WBC 7.3 RBC 3.73 L Hgb 11.8 L Hct 35.5 L MCV 95.2 MCH 31.6 MCHC 33.2 RDW 13.6 Plt Count 154 MPV 9.5 Immature Gran % 0.3 Seg Neutrophils % 62.6 Lymphocytes % 26.9 Monocytes % 9.5 Eosinophils % 0.4 Basophils % 0.3 Neutrophils # 4.5 Lymphocytes # 2.0 Monocytes # 0.7 Eosinophils # 0.0 Basophils # 0.0 Sodium 138 Potassium 3.9 Chloride 111 H Carbon Dioxide 25 BUN 21 Creatinine 0.98 Est GFR ( Amer) > 60 Est GFR (Non-Af Amer) > 60 BUN/Creatinine Ratio 21 Glucose 105 Calculated Osmolality 289 Calcium 8.6 - Discharge Medications Prescriptions: Docusate [Colace] 100 mg PO BID #60 capsule Oxycodone HCl/Acetaminophen [Percocet 5-325 mg Tablet] 1 each PO Q4H PRN 7 Days #25 tablet PRN Reason: Pain Home Medications: Fexofenadine HCl 180 mg PO QAM PRN 03/26/16 [History] Fluticasone Propionate Nasal [Flonase] 50 mcg NS DAILY PRN 06/22/17 [History] Oxybutynin Chloride [Ditropan Xl] 10 mg PO HS 06/22/17 [History] Aspirin Enteric Coated [Aspirin EC] 81 mg PO DAILY #30 tablet. 06/23/17 [Rx] Atorvastatin [Lipitor] 40 mg PO HS #30 tablet 06/23/17 [Rx] Docusate [Colace] 100 mg PO BID #60 capsule 08/23/17 [Rx] Oxycodone HCl/Acetaminophen [Percocet 5-325 mg Tablet] 1 each PO Q4H PRN 7 Days #25 tablet 08/23/17 [Rx] Allergies/Adverse Reactions: 3 Allergy/AdvReac Type Severity Reaction Status Date / Time Sulfa (Sulfonamide Allergy See Verified 08/22/17 07:00 Antibiotics) Comments Date of admission: 08/22/17 14:27 Primary care physician: Reshma Vergara[facility] Discharging clinician: Nick Singh Anticipated date of discharge: 08/23/17 Exam Initial Vital Signs Temp Pulse Resp BP Pulse Ox 98.1 F 100 18 149/97 98 08/22/17 06:25 08/22/17 06:25 08/22/17 06:25 08/22/17 06:25 08/22/17 06:25 - General physical appearance Present: well developed, well nourished, no distress - Eyes Absent: icteric - ENT Present: normal nares, decreased hearing - Neck Present: trachea midline - Respiratory Present: normal respiratory effort - Cardiovascular Cardiovascular exam IM: RRR - Abdomen Abdomen: Present: soft, tender (appropriately tender. ND. Wounds are clean, dry, intact.) - Genitourinary normal penis with no external lesions (catheter in place.) - Patient Status Disposition: Home, Self-Care Condition: Good Functional capacity at discharge: independent ambulation Overall status at discharge: patient is progressing back to baseline - Discharge Instructions Follow Up With: Nick Singh MD [Partnered Physician] - 08/30/17 10:45 am (Voiding trial in 1 week.) Additional Instructions: Please provide catheter care instructions - leg bag, night bag, leg strap and how to change the bags appropriately. 1. No heavy lifting greater than 20 pounds x2 weeks. 2. No tub baths x2 weeks. 3. May shower tomorrow. 4. He should follow up in 1 week for a voiding trial. 5. He should return for any fevers, chills, nausea, vomiting, or significant swelling/ecchymosis. - Diet and Activity Activity: increase activity as tolerated Diet: advance to your usual diet - VTE Documentation of Mechanical Device: Intermittent pneumatic compression device
== END 2017-08-23 17:24 | disposition home or self-care (01) | DRG 708 ==
LOC: SAMDAY 06:08 → 3ANU 14:27 → INTOOBSV 14:27
PROVIDERS: ADMIT Urology; ATTEND Urology

== ENCOUNTER 2020-12-13 16:39 | Inpatient (IN) ==
[2020-12-13] MEDS ORDERED: Isovue-370 500 ML BOTTLE IVP ONE (17:26)
[2020-12-13] MEDS ORDERED: *HR* HYDROmorphone (PF) 1 MG/ML SYRINGE IVP ONE ×2 (17:26→17:28)
[2020-12-13 18:44] LABS: Bilirubin,Urine Negative (Negative); Blood,Urine Large (Negative); Clarity,Urine Turbid (Clear); Color,Urine Dark-Red (Yellow); Glucose,Urine (UA) Normal (Normal); Ketones,Urine Negative (Negative); Leukocyte Esterase,Urine Trace (Negative); Nitrite,Urine Negative (Negative); PH,Urine 6.5 pH Units (5.0-8.0); Protein,Urine >=300 mg/dL (Neg-Trace); Specific Gravity,Urine 1.024 (1.010-1.025); Urobilinogen,Urine Normal (Normal)
[2020-12-13 19:01] LABS: Basophils % 0.2 %; Eosinophils # 0.1 K/mcL (0.0-0.6); Eosinophils % 0.8 %; Hemoglobin 10.9 g/dL (12.9-16.9); Immature Granulocytes % 0.2 % (0-4); Lymphocytes # 0.8 K/mcL (0.6-4.6); Lymphocytes % 12.8 %; Mean Corpuscular Hemoglobin 30.6 pg (28.0-33.3); Mean Corpuscular Volume 92.7 fL (83.0-100.0); Mean Platelet Volume 9.7 fL (9.4-12.4); Monocytes # 0.5 K/mcL (0.0-1.3); Monocytes % 8.8 %; Neutrophils # 4.6 K/mcL (1.6-8.9); Platelet Count 178 K/mcL (140-400); Red Blood Count 3.56 M/mcL (4.19-5.50); Red Cell Distribution Width 13.2 % (11.5-14.5); Segmented Neutrophils % 77.2 %
[2020-12-13 19:13] LABS: INR 1.2; Prothrombin Time 13.3 Seconds (9.4-12.1)
[2020-12-13 19:22] LABS: Alanine Aminotransferase 19 Units/L (7-52); Albumin/Globulin Ratio 1.8 (1.1-2.2); Alkaline Phosphatase 37 Units/L (34-104); Aspartate Amino Transferase 25 Units/L (13-39); BUN/Creatinine Ratio 15 (6-26); Bilirubin,Total 0.6 mg/dL (0.3-1.0); Blood Urea Nitrogen 19 mg/dL (8-23); Calcium 8.5 mg/dL (8.6-10.3); Carbon Dioxide 23 mEq/L (23-29); Chloride 101 mEq/L (98-107); Globulin 2.2 g/dL (2.4-3.5); Glucose 120 mg/dL (70-105); Osmolality,Calculated 275 (280-300); Potassium 3.9 mEq/L (3.5-5.1); Sodium 131 mEq/L (136-145); Total Protein 6.2 g/dL (6.4-8.9); eGFR For African Americans > 60 (> 60); eGFR For Non-African Americans 56 (> 60)
[2020-12-13] MEDS ORDERED: *HR* Belladonna Alkaloids/Opium 30 MG RECTAL SUPPOSITORY RC ONE (21:54)
[2020-12-13] MEDS ORDERED: *HR* FentaNYL (PF) 100 MCG/2 ML VIAL IVP ONE (21:54)
[2020-12-13] MEDS ORDERED: Ondansetron 4 MG/2 ML VIAL IVP ONE (22:26)
[2020-12-14] MEDS ORDERED: *HR* HYDROmorphone (PF) 1 MG/ML SYRINGE IVP STA (00:08)
[2020-12-14] MEDS ORDERED: Naloxone 0.4 MG/ML INJ IVP PRN (00:13)
[2020-12-14] MEDS ORDERED: Ondansetron 4 MG/2 ML VIAL IVP PRN (00:13)
[2020-12-14] MEDS ORDERED: Melatonin 3 MG TABLET PO PRN (00:13)
[2020-12-14] MEDS ORDERED: 0.9 % Sodium Chloride 1,000 ML IVC SCH (00:15)
[2020-12-14 05:35] LABS: Hematocrit 34.3 % (37.5-50.1); Hemoglobin 11.4 g/dL (12.9-16.9); Mean Corpuscular HGB Conc 33.2 g/dL (31.6-35.5); Mean Corpuscular Hemoglobin 31.1 pg (28.0-33.3); Mean Corpuscular Volume 93.7 fL (83.0-100.0); Mean Platelet Volume 9.8 fL (9.4-12.4); Platelet Count 175 K/mcL (140-400); Red Blood Count 3.66 M/mcL (4.19-5.50); Red Cell Distribution Width 13.4 % (11.5-14.5); White Blood Count 6.3 K/mcL (4.3-11.1)
[2020-12-14 05:56] LABS: BUN/Creatinine Ratio 15 (6-26); Blood Urea Nitrogen 15 mg/dL (8-23); Calcium 8.6 mg/dL (8.6-10.3); Carbon Dioxide 25 mEq/L (23-29); Chloride 105 mEq/L (98-107); Glucose 112 mg/dL (70-105); Osmolality,Calculated 282 (280-300); Potassium 4.1 mEq/L (3.5-5.1); Sodium 135 mEq/L (136-145); eGFR For African Americans > 60 (> 60); eGFR For Non-African Americans > 60 (> 60)
[2020-12-14] MEDS: lisinopriL 20 MG TABLET PO SCH (08:48)
[2020-12-14] MEDS ORDERED: Ipratropium/Albuterol Neb 3 ML IH PRN (15:20)
[2020-12-14] MEDS: Ipratropium/Albuterol Neb 3 ML IH SCH ×2 (16:14→20:54)
[2020-12-14] MEDS: Azithromycin 250 MG TABLET PO SCH (16:27)
[2020-12-14] MEDS: predniSONE 20 MG TABLET PO SCH (16:27)
[2020-12-14] MEDS: Acetaminophen 325 MG TABLET PO PRN (18:18)
[2020-12-14] MEDS: Lactobacillus 1 EACH CAP.SPRINK PO SCH (20:27)
[2020-12-14] MEDS: Budesonide/Formoterol 160/4.5 1 PUFF INH IH SCH (20:52)
[2020-12-15] MEDS: Ipratropium/Albuterol Neb 3 ML IH SCH ×4 (03:58→22:42)
[2020-12-15 04:41] LABS: Basophils % 0.2 %; Hematocrit 31.1 % (37.5-50.1); Hemoglobin 10.1 g/dL (12.9-16.9); Immature Granulocytes % 0.4 % (0-4); Lymphocytes # 0.8 K/mcL (0.6-4.6); Lymphocytes % 14.9 %; Mean Corpuscular HGB Conc 32.5 g/dL (31.6-35.5); Mean Corpuscular Hemoglobin 30.8 pg (28.0-33.3); Mean Corpuscular Volume 94.8 fL (83.0-100.0); Mean Platelet Volume 9.9 fL (9.4-12.4); Monocytes # 0.4 K/mcL (0.0-1.3); Monocytes % 7.6 %; Platelet Count 181 K/mcL (140-400); Red Blood Count 3.28 M/mcL (4.19-5.50); Red Cell Distribution Width 13.7 % (11.5-14.5); Segmented Neutrophils % 76.9 %; White Blood Count 5.3 K/mcL (4.3-11.1)
[2020-12-15 05:05] LABS: % Iron Saturation 11 % (20-55); BUN/Creatinine Ratio 21 (6-26); Blood Urea Nitrogen 20 mg/dL (8-23); Calcium 8.4 mg/dL (8.6-10.3); Carbon Dioxide 22 mEq/L (23-29); Chloride 108 mEq/L (98-107); Glucose 129 mg/dL (70-105); Iron 33 mcg/dL (65-175); Magnesium 1.9 mg/dL (1.6-2.6); Osmolality,Calculated 288 (280-300); Phosphorous 3.2 mg/dL (2.7-4.5); Potassium 4.6 mEq/L (3.5-5.1); Sodium 137 mEq/L (136-145); Transferrin 220 mg/dL (203-362); eGFR For African Americans > 60 (> 60); eGFR For Non-African Americans > 60 (> 60)
[2020-12-15 05:21] LABS: Ferritin 44 ng/mL (20-250)
[2020-12-15] MEDS ORDERED: Iron Sucrose Complex 400 MG in 0.9 % Sodium Chloride 250 ML IVPB ONE (08:05)
[2020-12-15] MEDS: predniSONE 20 MG TABLET PO SCH (08:57)
[2020-12-15] MEDS: Lactobacillus 1 EACH CAP.SPRINK PO SCH ×2 (08:57→21:45)
[2020-12-15] MEDS: lisinopriL 20 MG TABLET PO SCH (08:57)
[2020-12-15] MEDS: Azithromycin 250 MG TABLET PO SCH (08:57)
[2020-12-15] MEDS: Calcium Gluconate 1gm/50mL 1 GM/50 ML BAG IVPB SCH ×2 (09:15→10:41)
[2020-12-15] MEDS: Budesonide/Formoterol 160/4.5 1 PUFF INH IH SCH ×2 (09:42→22:42)
[2020-12-16 02:02] LABS: Basophils % 0.1 %; Eosinophils % 0.6 %; Hematocrit 26.8 % (37.5-50.1); Immature Granulocytes % 0.3 % (0-4); Lymphocytes # 1.4 K/mcL (0.6-4.6); Lymphocytes % 19.3 %; Mean Corpuscular HGB Conc 33.6 g/dL (31.6-35.5); Mean Corpuscular Hemoglobin 31.4 pg (28.0-33.3); Mean Corpuscular Volume 93.4 fL (83.0-100.0); Mean Platelet Volume 10.1 fL (9.4-12.4); Monocytes # 0.9 K/mcL (0.0-1.3); Monocytes % 12.6 %; Neutrophils # 4.7 K/mcL (1.6-8.9); Platelet Count 189 K/mcL (140-400); Red Blood Count 2.87 M/mcL (4.19-5.50); Red Cell Distribution Width 13.8 % (11.5-14.5); Segmented Neutrophils % 67.1 %
[2020-12-16 02:18] LABS: BUN/Creatinine Ratio 23 (6-26); Blood Urea Nitrogen 26 mg/dL (8-23); Calcium 8.6 mg/dL (8.6-10.3); Carbon Dioxide 26 mEq/L (23-29); Chloride 108 mEq/L (98-107); Glucose 132 mg/dL (70-105); Osmolality,Calculated 295 (280-300); Phosphorous 2.3 mg/dL (2.7-4.5); Potassium 3.8 mEq/L (3.5-5.1); Sodium 139 mEq/L (136-145); eGFR For African Americans > 60 (> 60); eGFR For Non-African Americans > 60 (> 60)
[2020-12-16] MEDS: Ipratropium/Albuterol Neb 3 ML IH SCH ×4 (03:46→21:09)
[2020-12-16] MEDS: Multivit/Ca/Min/Fe/FA 1 TAB TABLET PO SCH (07:45)
[2020-12-16] MEDS: predniSONE 20 MG TABLET PO SCH (07:45)
[2020-12-16] MEDS: Azithromycin 250 MG TABLET PO SCH (07:45)
[2020-12-16] MEDS: Lactobacillus 1 EACH CAP.SPRINK PO SCH ×2 (07:45→20:49)
[2020-12-16] MEDS: lisinopriL 20 MG TABLET PO SCH (07:46)
[2020-12-16] MEDS: Budesonide/Formoterol 160/4.5 1 PUFF INH IH SCH ×2 (09:30→21:09)
[2020-12-16 10:41] LABS: Hematocrit 29.1 % (37.5-50.1); Hemoglobin 9.6 g/dL (12.9-16.9)
[2020-12-16] MEDS: Acetaminophen 325 MG TABLET PO PRN ×2 (17:20→23:47)
[2020-12-17 02:33] LABS: Basophils % 0.5 %; Eosinophils # 0.1 K/mcL (0.0-0.6); Eosinophils % 1.1 %; Hemoglobin 8.8 g/dL (12.9-16.9); Immature Granulocytes % 1.1 % (0-4); Lymphocytes # 1.9 K/mcL (0.6-4.6); Lymphocytes % 26.3 %; Mean Corpuscular HGB Conc 32.6 g/dL (31.6-35.5); Mean Corpuscular Hemoglobin 31.1 pg (28.0-33.3); Mean Corpuscular Volume 95.4 fL (83.0-100.0); Mean Platelet Volume 9.7 fL (9.4-12.4); Monocytes # 0.8 K/mcL (0.0-1.3); Monocytes % 10.8 %; Neutrophils # 4.4 K/mcL (1.6-8.9); Platelet Count 217 K/mcL (140-400); Red Blood Count 2.83 M/mcL (4.19-5.50); Red Cell Distribution Width 14.1 % (11.5-14.5); Segmented Neutrophils % 60.2 %; White Blood Count 7.3 K/mcL (4.3-11.1)
[2020-12-17 02:49] LABS: Blood Urea Nitrogen 25 mg/dL (8-23); Carbon Dioxide 26 mEq/L (23-29); Chloride 105 mEq/L (98-107); Sodium 142 mEq/L (136-145)
[2020-12-17 02:50] LABS: BUN/Creatinine Ratio 25 (6-26); Calcium 8.8 mg/dL (8.6-10.3); Glucose 106 mg/dL (70-105); Magnesium 1.8 mg/dL (1.6-2.6); Osmolality,Calculated 299 (280-300); Phosphorous 2.6 mg/dL (2.7-4.5); eGFR For African Americans > 60 (> 60); eGFR For Non-African Americans > 60 (> 60)
[2020-12-17] MEDS: Ipratropium/Albuterol Neb 3 ML IH SCH ×3 (03:51→16:08)
[2020-12-17] MEDS: lisinopriL 20 MG TABLET PO SCH (09:36)
[2020-12-17] MEDS: Multivit/Ca/Min/Fe/FA 1 TAB TABLET PO SCH (09:36)
[2020-12-17] MEDS: Lactobacillus 1 EACH CAP.SPRINK PO SCH (09:36)
[2020-12-17] MEDS: predniSONE 20 MG TABLET PO SCH (09:36)
[2020-12-17] MEDS: Azithromycin 250 MG TABLET PO SCH (09:36)
[2020-12-17] MEDS: Budesonide/Formoterol 160/4.5 1 PUFF INH IH SCH (10:58)
[2020-12-17 16:19] VITALS: BP 133/66
== END 2020-12-17 18:07 | disposition home or self-care (01) | DRG 699 ==
LOC: 3ANU 16:39 → EMEROOARM 16:39 → SUATTDRO 23:07 → 3ANU 12-14 01:30 → SUATTDRO 12-15 17:48
PROVIDERS: ADMIT Family Medicine; ATTEND Pharmacist